=== PATIENT | male | born 1955 | race Caucasian/White ===

== ENCOUNTER 2019-04-11 06:56 | Day surgery (SDC) | payer OTHER ==
[2019-04-10 17:30] VITALS: BMI 28.0
[2019-04-11] VITALS (9 sets, daily range): BP systolic 112–157; BP diastolic 65–80; PULSE 66–77; RESP 14–16; Ht 165.1 cm; Wt 70.9 kg
[~2019-04-11] VITALS: Ht 165.1 cm; Wt 70.9 kg
--- NOTE | 2019-04-11 06:26 | PREOPHP ---
DATE OF ADMISSION: 04/11/2019 HISTORY OF PRESENT ILLNESS: This 63-year-old patient is admitted for elective cataract surgery of th e left eye. The patient has had progressive deterioration of vision in the left eye over the last ye ar and 3-1/2 years ago, underwent cataract surgery of the right eye with good visual result. The pat chad has a 30-year history of insulin-dependent diabetes mellitus as well as systemic hypertension, h ypercholesterolemia and some heart disease. CURRENT MEDICATIONS: Include: 1. Lisinopril. 2. Metoprolol. 3. Simvastatin. 4. Amlodipine. 5. Plavix (discontinued 1 week prior to surgery). 6. Aspirin (discontinued 1 week prior to surgery). 7. Hydrochlorothiazide. 8. Glipizide. 9. Insulin. ALLERGIES: THERE ARE NO KNOWN ALLERGIES. PHYSICAL EXAMINATION: The visual acuity with correction is 20/40 in the right eye and finger countin g vision in the left eye. Slit lamp examination reveals a posterior chamber intraocular lens in appr opriate position in the right eye. The left eye has a significant posterior subcapsular opacity. Ap planation tonometry 16 mmHg. Examination of the retina is within normal limits without evidence of d iabetic retinopathy. DIAGNOSIS: Posterior subcapsular cataract, left eye. PLAN: Cataract extraction with lens implant, left eye. The risks and alternatives to the surgery fernandez ve been discussed with the patient as well as the hope for improvement of visual acuity leading to gr eater ability to perform activities of daily living. The patient understands this and agrees to proc eed with surgery. Dictated By: RADHA CHAUDHARY/TEA Conf#: [id number] DID#: [id number]
[~2019-04-11 06:56] MED LIST: AMLODIPINE PO; ASPI-1044 PO; CLOP75TA27 PO; GLIPIZIDE PO; HYDROCHLOROTHIAZIDE PO; LESINOPRIL PO; METFORMIN PO; METOPROLOL PO; SIMVASTATIN PO
[2019-04-11] MEDS ORDERED: METO-336 PO (07:57)
[2019-04-11] MEDS ORDERED: METF100010 PO (07:57)
[2019-04-11] MEDS ORDERED: AMLO-147 PO (07:58)
[2019-04-11] MEDS ORDERED: HYG50 PO (07:58)
[2019-04-11] MEDS ORDERED: ATOR20TA38 PO (07:59)
[2019-04-11] MEDS ORDERED: ASPI325T30 PO (07:59)
[2019-04-11] MEDS ORDERED: CYCLOPENTOLATE/PHENYLEPH 2 ML OPH OPER SCH (08:00)
[2019-04-11] MEDS ORDERED: LANT3I SC (08:00)
[2019-04-11] MEDS ORDERED: TROPICAMIDE 1% 15 ML OPH OPER SCH (08:00)
[2019-04-11] MEDS ORDERED: LIRA0.6P2 SQ (08:00)
[2019-04-11] MEDS ORDERED: MOXIFLOXACIN 0.5% 3 ML OPH OPER SCH (08:00)
[2019-04-11] MEDS ORDERED: DICLOFENAC 0.1% 2.5 ML OPH OPER SCH (08:00)
[2019-04-11] MEDS ORDERED: SOD CHLORIDE 0.9% 1,000 ML IV SCH (08:00)
[2019-04-11] MEDS ORDERED: OMEG-158 PO (08:01)
[2019-04-11] MEDS ORDERED: CLOP75TA27 PO (08:01)
--- NOTE | 2019-04-11 08:33 | PREAC ---
Date/Time of Note Date/Time of Note DATE: 04/11/19 TIME: 08:32 Anesthesia Eval and Record Evaluation Time Pre-Procedure Interview DATE: 04/11/19 TIME: 08:32 Age 63 Sex male NPO: 8 hrs Preoperative diagnosis left eye cataract Planned procedure left eye cataract extraction with lens implant Past Medical History Past Medical History: Includes Cardio: HTN, Dyslipidemia, CAD, PTCA/Stent Endo: Diabetes Surgery & Anesthesia Issues No known issue Meds Anticoagulation: Yes (plavix held x 1 week) Beta Morgan within 24 hr: Yes Reason Beta Morgan not given: Bradycarida, Hypotension Reported Medications Sherman-3/Dha/Epa/Fish Oil (FISH OIL 1,000 MG SOFTGEL) 1 Each Capsule, 1 EACH PO DAILY, CAP 04/11/19 Clopidogrel Bisulfate (Clopidogrel) 75 Mg Tablet, 75 MG PO DAILY, #30 TAB 04/11/19 Insulin Glargine* (Lantus*) 100 Unit/Ml Soln, 20 UNIT SC QHS, #1 VIAL 04/11/19 Liraglutide (Victoza 3-Nima) 0.6 Mg/0.1 Ml Pen.injctr, 1.8 MG SQ DAILY, SYR 04/11/19 Aspirin* (Aspirin*) 325 Mg Tablet, 325 MG PO DAILY, TAB 04/11/19 Atorvastatin Calcium* (Atorvastatin Calcium*) 20 Mg Tablet, 20 MG PO QHS, #30 TAB 04/11/19 Chlorthalidone* (Chlorthalidone*) 50 Mg Tablet, 50 MG PO DAILY, TAB 04/11/19 Amlodipine Besylate* (Amlodipine Besylate*) 10 Mg Tablet, 10 MG PO DAILY, #30 TAB 04/11/19 Metoprolol Succinate* (Toprol XL*) 100 Mg Tab.sr.24h, 100 MG PO DAILY, #30 TAB 04/11/19 Metformin Hcl* (Metformin Hcl*) 1,000 Mg Tablet, 1000 MG PO WITH BREAKFAST DINNE, #60 TAB 04/11/19 Discontinued Reported Medications [Hydrochlorothiazide] No Conflict Check, PO DAILY 09/18/14 [Metformin] No Conflict Check, PO DAILY 09/18/14 [Glipizide] No Conflict Check, PO DAILY 09/18/14 [Simvastatin] No Conflict Check, PO HS 09/18/14 [Lesinopril] No Conflict Check, PO DAILY 09/18/14 [Metoprolol] No Conflict Check, PO DAILY 09/18/14 [Amlodipine] No Conflict Check, PO DAILY 09/18/14 Aspirin Delayed Release (Aspirin Delayed Release) 81 Mg Tablet.dr, 81 MG PO DAILY 09/18/14 Clopidogrel Bisulfate (Clopidogrel) 75 Mg Tablet, 75 MG PO DAILY, TAB 09/18/14 Current Medications Diclofenac Sodium (Voltaren 0.1%) 1 drop Q5 MIN X 3 OPER Last administered on 04/11/19at 07:39; Admin Dose 1 DROP; Start 04/11/19 at 08:00 Tropicamide (Mydriacyl 1%) 1 drop Q5 MIN X3 OPER Last administered on 04/11/19at 07:39; Admin Dose 1 DROP; Start 04/11/19 at 08:00 Moxifloxacin HCl (Vigamox) 1 drop Q5 MIN X 3 OPER Last administered on 04/11/19at 07:39; Admin Dose 1 DROP; Start 04/11/19 at 08:00 Cyclopentolate/ Phenylephrine (Cyclomydril Oph 2 ml) 1 drop Q5 MIN X 3 OPER Last administered on 04/11/19at 07:40; Admin Dose 1 DROP; Start 04/11/19 at 08:00 Sodium Chloride 1,000 ml @ 25 mls/hr Q24H IV Last administered on 04/11/19at 0 7:39; Admin Dose 25 MLS/HR; Start 04/11/19 at 08:00 Meds reviewed: Yes Allergies Coded Allergies: No Known Allergy (Unverified , 04/11/19) Allergies Reviewed: Yes Labs/Studies Labs Reviewed: Reviewed by anesthesiologist test: N/A Studies: ECG, CXR Pre-procedure Exam Last vitals Vital Signs Date Temp Pulse Resp B/P (MAP) Pulse Ox O2 O2 Flow FiO2 Time Delivery Rate 04/11/19 97.4 66 16 157/80 100 Room Air 07:52 (105) Airway: Adequate mouth opening, Adequate thyromental dist Mallampati: Mallampati II Teeth: Normal Lung: Normal Heart: Normal ASA Physical Status ASA physical status: 3 Emergency: None Planned Anesthetic General/MAC: Mask Planned Pain Management Parenteral pain med, Local by surgeon Pre-operative Attestations Prior to commencing anesthesia and surgery, the patient was re-evaluated, there was verification of: *The patient's identity *The results of appropriate recent lab work and preoperative vital signs *The above evaluation not changing prior to induction *Anesthetic plan, risk benefits, alternative and complications discussed with p atient/family; questions answered; patient/family understands, accepts and wishes to proceed. CHESTER ROQUE MD Apr 11, 2019 08:33
[2019-04-11] MEDS ORDERED: LIDOCAINE 4% (MPF) 5 ML INJ ONE (09:24)
[2019-04-11] MEDS ORDERED: CEFAZOLIN 1 GM INJ ONE (09:24)
[2019-04-11] MEDS ORDERED: NA HYALURONATE/CHONDROITIN 0.5 ML SYG ONE (09:24)
[2019-04-11] MEDS ORDERED: CARBACHOL 0.01% 1.5 ML OPH INJ ONE (09:24)
[2019-04-11] MEDS ORDERED: DEXAMETHASONE 4 MG/ML 1 ML INJ ONE (09:24)
[2019-04-11] MEDS ORDERED: ONDANSETRON 4 MG INJ IV PRN (09:30)
[2019-04-11] MEDS ORDERED: FENTAnyl 50 MCG/ML VIAL IV PRN (09:30)
[2019-04-11] MEDS ORDERED: DIPHENHYDRAMINE 50 MG INJ IV PRN (09:30)
[2019-04-11] MEDS ORDERED: MEPERIDINE 25 MG INJ IV PRN (09:30)
[2019-04-11] MEDS ORDERED: HYDROmorphONE 1 MG/5 ML IV SYRINGE IV PRN (09:30)
[2019-04-11] MEDS ORDERED: PROCHLORPERAZINE 10 MG INJ IV PRN (09:30)
[2019-04-11] MEDS ORDERED: FENTAnyl 50 MCG/ML VIAL ONE (09:37)
[2019-04-11] MEDS ORDERED: MIDAZOLAM 1 MG/ML 2 ML INJ ONE (09:37)
[2019-04-11] MEDS ORDERED: PROPOFOL 20 ML ONE (09:41)
[2019-04-11] MEDS ORDERED: LIDOCAINE 2% (SDV) 5 ML INJ ONE (09:41)
[2019-04-11] MEDS ORDERED: OXYCODONE/ACETAMINOPHEN (5/325) TAB PO PRN (10:00)
--- NOTE | 2019-04-11 10:18 | PAC ---
Date/Time of Note Date/Time of Note DATE: 04/11/19 TIME: 10:17 Post-Anesthesia Notes Post-Anesthesia Note Last documented vital signs Vital Signs Date Temp Pulse Resp B/P (MAP) Pulse Ox O2 O2 Flow FiO2 Time Delivery Rate 04/11/19 97.4 66 16 157/80 100 Room Air 07:52 (105) Activity: WNL Respiratory function: WNL Cardiovascular function: WNL Mental status: Baseline Pain reasonably controlled: Yes Hydration appropriate: Yes Nausea/Vomiting absent: Yes Comments BP: 131/74 HR: 71 RR: 15 T: 98 SaO2: 98% CHESTER ROQUE MD Apr 11, 2019 10:18
--- NOTE | 2019-04-11 10:20 | SIPON ---
Date/Time of Note Date/Time of Note DATE: 04/11/19 TIME: 10:19 Operative Report Preoperative Diagnosis nuclear sclerotic & posterior subcapsular cataract os Postoperative Diagnosis same Operation/Procedure Performed cataract extraction with lens implant os Surgeon radha wild gallery assistant none Anesthesia: MAC Estimated blood loss: none Transfusion Required none Specimen none Grafts/Implants posterior chamber lens implant Complications none RADHA WILD MD Apr 11, 2019 10:20
--- NOTE | 2019-04-11 10:54 | OPR ---
DATE OF OPERATION: 04/11/2019 PREOPERATIVE DIAGNOSIS : Nuclear sclerotic and posterior subcapsular cataract, left eye. POSTOPERATIVE DIAGNOSIS: Nuclear sclerotic and posterior subcapsular cataract, left eye. OPERATION PERFORMED: Cataract extraction with lens implant, left eye. SURGEON: Radha Barrera MD ANESTHESIA: Local standby. ANESTHESIOLOGIST: Dr. Valdes. PROCEDURE: The patient was brought to the operating room and placed on the table with an IV in place and the patient attached to an engine monitor. Oxygen was given via face mask. After some intravenous sedation was administered, local anesthesia was given using Xylocaine 2% with epinephrine, mixed with Marcaine 0.5%. This was given in a lid block and retrobulbar injection. The patient was then prepped and draped in the usual sterile manner. A wire lid speculum was inserted between the lids of the left eye. A Superblade was used to enter th e anterior chamber at the corneoscleral limbus at the 10:30 o'clock position. A separate incision wa s made using a 3.0-mm keratome which entered the corneoscleral junction at the 12 o'clock position. Through this 3-mm opening, an irrigating cystotome was introduced into the anterior chamber. The anahi mber was filled with Viscoat and an anterior capsulotomy was performed. Balanced salt solution was th en used for hydrodissection of the lens. A phacoemulsification handpiece was then brought into the f ield and introduced into the anterior chamber. The lens nucleus was emulsified using a deep groove a nd cracking the nucleus into quadrants. Due to the increased firmness of the lens nucleus, it was ne cessary to use a higher power setting in order to emulsify the lens nucleus. Following this, each qu adrant was aspirated and emulsified at the pupillary margin. After this was completed, the irrigation/aspiration handpiece was brought to the field, introduced in to the posterior chamber, and the lens cortical material was removed. When this was completed, additi onal Viscoat was injected into the anterior and posterior chambers. The 3-mm opening had its internal lips enlarged, and then the posterior chamber intraocular lens luis enrique uring 21.0 diopters ([employer] Model LI61AO) was then injected into the posterior c hamber using the lens injector system. After the leading haptic was introduced into the capsular bag and the lens optic was present in the center of the eye, the injector was removed and the trailing h aptic was grasped with non-toothed forceps and introduced into the capsular fold superiorly. A Sinske y hook was then used to rotate the intraocular lens so that the lips were oriented in the horizontal meridian. One 10-0 nylon suture was placed across the wound. Prior to tying, the irrigation/aspiration handpiece was reintroduced into the anterior chamber to rem ove the Viscoat. Miochol was instilled to constrict the pupil, and then the 10-0 nylon suture was ti ed. The ends were cut short and then the knot was buried. Then, 0.5 mL of dexamethasone and 0.5 mL of Ancef were injected into the sub-Tenon space in the infer ior fornix. Ciloxan drops were then placed on the surface of the eye. The speculum was removed and a patch was applied. The patient then left the operating room in satisfactory condition. Dictated By: RADHA CHAUDHARY/TEA Conf#: [id number] DID#: [id number]
== END 2019-04-11 10:58 | disposition home or self-care (01) ==
LOC: SDS 06:56
PROVIDERS: ATTEND Ophthalmology
DX: H25.032 Anterior subcapsular polar age-related cataract, left eye (principal); I10 Essential (primary) hypertension; E11.8 Type 2 diabetes mellitus with unspecified complications; E78.00 Pure hypercholesterolemia, unspecified; Z79.82 Long term (current) use of aspirin; Z79.02 Long term (current) use of antithrombotics/antiplatelets; Z79.4 Long term (current) use of insulin
CPT/HCPCS: 66984; 80048; 82962; J0690; J1100; J2250; J3010; V2632